=== PATIENT | female | born 1975 | race Caucasian/White ===

== ENCOUNTER 2018-07-24 14:53 | Emergency (ER) | payer OTHER ==
[~2018-07-24] VITALS: Ht 162.6 cm; Wt 68.0 kg
[~2018-07-24 14:53] MED LIST: ALBUTEROL2.5 MG/0.5 INH; AMBIEN 5 MG TABL5 M1 PO; CARISOPRODOL 3350 MG PO; CIPROFLOXACIN500 M1 PO; DILAUDID 2 MG TA2 MG PO; DILAUDID 4 MG TA4 M1 PO; MELATONIN3 MG PO; NOHOMEMEDICATIONS; NYQUIL D COLD295 ML; ONDANSETRON HCL4 M2 PO; ONDANSETRON HCL8 MG PO; OPANA ER40 M1 PO; OXYCODONE HCL30 MG PO; OXYCODONE-ACET1 EACH PO; OXYCONTIN10 M1 PO; PAXIL10 MG; PERCOCET 5-3251 EACH PO; PHENERGAN25 M1 RC; PROTONIX 20 MG20 M1 PO; REMERON15 MG PO; ROXICODONE5 MG PO; SEROQUEL 50 MG50 MG PO; SUPRAX400 M1 PO; ZOFRAN ODT4 MG PO; ZOFRAN4 MG PO; ZPAK PO
== END 2018-07-24 16:11 | disposition left against medical advice (07) ==
LOC: ER 14:53
DX: M25.562 Pain in left knee (principal); G43.909 Migraine, unspecified, not intractable, without status migrainosus; K50.90 Crohn's disease, unspecified, without complications; Z85.41 Personal history of malignant neoplasm of cervix uteri; Z90.49 Acquired absence of other specified parts of digestive tract; M79.7 Fibromyalgia; Z90.710 Acquired absence of both cervix and uterus; Z88.1 Allergy status to other antibiotic agents; Z88.5 Allergy status to narcotic agent; Z88.6 Allergy status to analgesic agent; Z88.8 Allergy status to other drugs, medicaments and biological substances; Z87.891 Personal history of nicotine dependence

== ENCOUNTER 2019-12-25 07:26 | Emergency (ER) | payer OTHER ==
[~2019-12-25] VITALS: Ht 162.6 cm; Wt 61.6 kg
[2019-12-25] MEDS ORDERED: ELIQUIS5 MG PO (07:42)
[2019-12-25] MEDS ORDERED: ONDANSETRON HCL4 M2 PO (07:42)
[2019-12-25] MEDS ORDERED: DILAUDID 4 MG TA4 M1 PO (07:42)
[2019-12-25 07:59] LABS: URINE BILIRUBIN NEGATIVE (Negative); URINE BLOOD TRACE (Negative); URINE CLARITY CLEAR; URINE COLOR YELLOW; URINE GLUCOSE-RANDOM* NEGATIVE (Negative); URINE KETONES NEGATIVE (Negative); URINE LEUKOCYTES-REFLEX NEGATIVE (Negative); URINE NITRITE-REFLEX NEGATIVE (Negative); URINE PROTEIN (DIPSTICK) NEGATIVE (Negative); URINE SPECIFIC GRAVITY 1.015 (1.005-1.035); URINE UROBILINOGEN 0.2 E.U./dl (0.2-1.0)
[2019-12-25 08:11] LABS: AMP/METHAMP Negative (Negative); BARBITURATES Negative (Negative); BENZODIAZEPINES Negative (Negative); COCAINE Negative (Negative); METHADONE Negative (Negative); OPIATES Negative (Negative); PCP Negative (Negative)
[2019-12-25 09:23] LABS: ABSOLUTE NEUTROPHILS 4.1 thou/uL (1.4-8.2); BASOPHILS 0.7 % (0.0-2.0); EOSINOPHILS 0.8 % (0.0-3.0); HEMATOCRIT 40.2 % (37.0-47.0); HEMOGLOBIN 12.6 gm/dL (12.0-15.0); LYMPHOCYTES 24.6 % (24.0-44.0); MCH 26.6 pg (26.0-34.0); MCHC 31.5 g/dL (28.0-37.0); MCV 84.6 fL (80.0-100.0); PLATELET COUNT 341 thou/uL (150-400); POLYS 67.9 % (36.0-66.0); RBC 4.75 mil/uL (4.20-5.00); RDW 20.1 % (10.5-14.5); WBC 6.1 thou/uL (4.0-11.0)
[2019-12-25 09:35] LABS: APTT 33.6 Seconds (24.5-32.8); INR 1.2
[2019-12-25 09:43] LABS: CALCIUM 9.2 mg/dL (8.5-10.1); CREATININE 0.6 mg/dL (0.6-1.0); POTASSIUM 4.1 mmol/L (3.5-5.1)
[2019-12-25 09:47] LABS: ANISOCYTOSIS 2+; PLATELET ESTIMATE NORMAL
[2019-12-25 11:15] VITALS: BP 125/68
--- NOTE | 2019-12-25 17:21 | EKG ---
[facility] [place] [address] ELECTROCARDIOGRAM REPORT Name: KWAMESHAHRAM PATTON Room #: DEP [facility]#: [id number] Admission: 12/25/19 Attend Phys: Discharge: 12/25/19 Date of : 75 Report #: [id number] THIS REPORT FOR: cc: MAG - Alise family physician/PCP MAG - Alise family physician/PCP Pk Kulkarni MD ~ THIS REPORT FOR: //name// [facility] ED Test Date: 2019-12-25 Test Time: 09:58:46 Pat Name: SHAHRAM PUENTE Department: Room: Gender: Manager Of Administration: [place] : 1975 Requested By: Carmen Castro Order Number: [id number] MD: Pk Kulkarni Measurements Intervals [place] Rate: 63 P: 66 CA: 160 QRS: 61 QRSD: 82 T: 72 QT: 427 QTc: 438 Interpretive Statements Sinus rhythm Compared to ECG 06/26/2018 08:59:13 No significant changes Electronically Signed On 12-25-2019 17:20:33 CDT by Pk Kulkarni [email or web address] <ELECTRONICALLY SIGNED> By: Pk Kulkarni MD 12/25/19 1720 [id number] Pk Kulkarni MD /EPI
== END 2019-12-25 11:15 | disposition home or self-care (01) ==
LOC: ER 07:26
PROVIDERS: Emergency Medicine
DX: M54.2 Cervicalgia (principal); M54.5 Low back pain; M25.562 Pain in left knee; R55 Syncope and collapse; R53.1 Weakness; G43.909 Migraine, unspecified, not intractable, without status migrainosus; F17.210 Nicotine dependence, cigarettes, uncomplicated; F11.10 Opioid abuse, uncomplicated; Z79.899 Other long term (current) drug therapy; Z88.8 Allergy status to other drugs, medicaments and biological substances; Z88.6 Allergy status to analgesic agent; W10.8XXA Fall (on) (from) other stairs and steps, initial encounter; Y93.89 Activity, other specified; Y92.89 Other specified places as the place of occurrence of the external cause; Y99.8 Other external cause status; Z86.718 Personal history of other venous thrombosis and embolism; Z96.653 Presence of artificial knee joint, bilateral